=== PATIENT | female | born 1970 ===

== ENCOUNTER 2018-04-04 07:20 | Outpatient (CLI) | payer OTHER ==
[~2018-04-04 07:20] MED LIST: DERMOTIC20 ML OTIC; DIOVAN HCT 80/11 TA1 PO; FLONASE16 GM NS; NEURONTIN300 MG PO; TENCON TABLET1 TAB PO
== END 2018-04-04 08:19 | disposition home or self-care (01) ==
LOC: LAB 07:20
DX: I11.9 Hypertensive heart disease without heart failure (principal); E78.2 Mixed hyperlipidemia; E11.9 Type 2 diabetes mellitus without complications

== ENCOUNTER 2018-06-19 06:51 | Outpatient (CLI) | payer OTHER | END 2018-06-19 07:00 | disposition home or self-care (01) | LOC: LAB 06:51 | DX: I11.9 Hypertensive heart disease without heart failure (principal); E78.2 Mixed hyperlipidemia; D56.1 Beta thalassemia ==

== ENCOUNTER → 2018-10-17 | Outpatient (CLI) | payer OTHER | END | disposition home or self-care (01) | LOC: MAMO-SONO 07:05 | DX: N63.10 Unspecified lump in the right breast, unspecified quadrant (principal); N63.20 Unspecified lump in the left breast, unspecified quadrant; D57.3 Sickle-cell trait; I10 Essential (primary) hypertension; E78.2 Mixed hyperlipidemia; Z12.31 Encounter for screening mammogram for malignant neoplasm of breast; E06.3 Autoimmune thyroiditis; E03.8 Other specified hypothyroidism ==

== ENCOUNTER → 2018-12-18 | Outpatient (CLI) | payer OTHER | END | disposition home or self-care (01) | LOC: LAB 09:43 | DX: J11.1 Influenza due to unidentified influenza virus with other respiratory manifestations (principal); J11.81 Influenza due to unidentified influenza virus with encephalopathy ==

== ENCOUNTER → 2019-02-02 | Outpatient (CLI) | payer OTHER | END | disposition home or self-care (01) | LOC: LAB 12-19 09:27 → RAD 15:31 | DX: M54.2 Cervicalgia (principal); M54.5 Low back pain; M25.512 Pain in left shoulder; M25.551 Pain in right hip ==

== ENCOUNTER 2019-12-07 12:10 | Outpatient (CLI) | payer OTHER | END 2019-12-07 15:00 | disposition home or self-care (01) | LOC: LAB 12:10 | DX: Z03.818 Encounter for observation for suspected exposure to other biological agents ruled out (principal) ==

== ENCOUNTER 2020-04-22 09:00 | Outpatient (CLI) | payer OTHER | END 2020-04-22 15:49 | disposition home or self-care (01) | LOC: PPH VACUNA 09:00 | DX: Z23 Encounter for immunization (principal) ==

== ENCOUNTER 2020-06-27 14:41 | Outpatient (CLI) | payer OTHER | END 2020-06-27 15:00 | disposition home or self-care (01) | LOC: LAB 14:41 | PROVIDERS: ATTEND Radiology Diagnostic Radiology | DX: Z20.828 Contact with and (suspected) exposure to other viral communicable diseases (principal) ==

== ENCOUNTER 2020-07-21 08:47 | Outpatient (CLI) | payer OTHER | END 2020-07-21 15:00 | disposition home or self-care (01) | LOC: PPH VACUNA 08:47 | DX: Z23 Encounter for immunization (principal) ==

== ENCOUNTER → 2020-10-07 | Outpatient (CLI) | payer OTHER | END | disposition home or self-care (01) | LOC: MAMO-SONO 06:53 | PROVIDERS: ATTEND Radiology Diagnostic Radiology | DX: Z12.31 Encounter for screening mammogram for malignant neoplasm of breast (principal); E04.1 Nontoxic single thyroid nodule; R10.2 Pelvic and perineal pain ==

== ENCOUNTER → 2021-01-05 | Outpatient (CLI) | payer OTHER | END | disposition home or self-care (01) | LOC: SONOGRAMA 11:48 | PROVIDERS: ATTEND Radiology Diagnostic Radiology | DX: M79.641 Pain in right hand (principal); M25.531 Pain in right wrist ==

== ENCOUNTER 2021-02-15 06:59 | Outpatient (CLI) | payer OTHER | END 2021-02-15 07:01 | disposition home or self-care (01) | LOC: LAB 06:59 | PROVIDERS: ATTEND Internal Medicine Cardiovascular Disease | DX: N91.1 Secondary amenorrhea (principal); E78.2 Mixed hyperlipidemia; I11.9 Hypertensive heart disease without heart failure ==

== ENCOUNTER → 2021-02-17 07:02 | Outpatient (CLI) | payer OTHER | END | disposition home or self-care (01) | LOC: LAB 07:02 | DX: R19.5 Other fecal abnormalities (principal) ==

== ENCOUNTER 2021-05-02 08:00 | Outpatient (CLI) | payer OTHER | END 2021-05-02 11:09 | disposition home or self-care (01) | LOC: PPH VACUNA 08:00 | PROVIDERS: ATTEND Emergency Medicine Pediatric Emergency Medicine | DX: Z23 Encounter for immunization (principal) ==

== ENCOUNTER 2021-05-09 08:00 | Outpatient (CLI) | payer OTHER | END 2021-05-09 08:30 | disposition home or self-care (01) | LOC: PPH VACUNA 08:00 | PROVIDERS: ATTEND Emergency Medicine Pediatric Emergency Medicine | DX: Z23 Encounter for immunization (principal) ==

== ENCOUNTER 2021-12-19 06:40 | Outpatient (CLI) | payer OTHER | END 2021-12-19 06:52 | disposition home or self-care (01) | LOC: LAB 06:40 | PROVIDERS: ATTEND Internal Medicine Cardiovascular Disease | DX: E11.9 Type 2 diabetes mellitus without complications (principal); E78.00 Pure hypercholesterolemia, unspecified ==

== ENCOUNTER 2022-02-12 09:27 | Outpatient (CLI) | payer OTHER | END 2022-02-12 10:06 | disposition home or self-care (01) | LOC: NUCLEAR 09:27 | PROVIDERS: ATTEND Internal Medicine Cardiovascular Disease | DX: I49.3 Ventricular premature depolarization (principal) ==

== ENCOUNTER 2022-04-26 09:26 | Outpatient (CLI) | payer OTHER | END 2022-04-26 09:31 | disposition home or self-care (01) | LOC: PPH VACUNA 09:26 | PROVIDERS: ATTEND Emergency Medicine Pediatric Emergency Medicine | DX: Z23 Encounter for immunization (principal) ==

== ENCOUNTER 2022-05-11 08:00 | Outpatient (CLI) | payer OTHER | END 2022-05-11 08:05 | disposition home or self-care (01) | LOC: PPH VACUNA 08:00 | PROVIDERS: ATTEND Emergency Medicine Pediatric Emergency Medicine | DX: Z23 Encounter for immunization (principal) ==

== ENCOUNTER 2022-07-19 06:37 | Outpatient (CLI) | payer OTHER | END 2022-07-19 07:34 | disposition home or self-care (01) | LOC: LAB 06:37 | PROVIDERS: ATTEND Radiology Diagnostic Radiology | DX: I11.9 Hypertensive heart disease without heart failure (principal); E78.2 Mixed hyperlipidemia ==

== ENCOUNTER 2023-05-10 10:30 | Outpatient (CLI) | payer OTHER | END 2023-05-10 10:40 | disposition home or self-care (01) | LOC: PPH VACUNA 10:30 | PROVIDERS: ATTEND Emergency Medicine Pediatric Emergency Medicine | DX: Z23 Encounter for immunization (principal) ==

== ENCOUNTER 2023-05-23 07:04 | Outpatient (CLI) | payer OTHER | END 2023-05-23 07:20 | disposition home or self-care (01) | LOC: MAMO-SONO 07:04 | PROVIDERS: ATTEND Surgery | DX: N60.11 Diffuse cystic mastopathy of right breast (principal); N60.12 Diffuse cystic mastopathy of left breast; R10.84 Generalized abdominal pain; R10.2 Pelvic and perineal pain; Z12.31 Encounter for screening mammogram for malignant neoplasm of breast ==

== ENCOUNTER → 2024-05-27 | Outpatient (CLI) | payer OTHER | END | disposition home or self-care (01) | LOC: MAMO-SONO 07:13 | PROVIDERS: ATTEND Surgery | DX: N60.11 Diffuse cystic mastopathy of right breast (principal); N60.12 Diffuse cystic mastopathy of left breast ==

== ENCOUNTER 2024-06-05 03:30 | Outpatient (CLI) | payer OTHER | END 2024-06-05 04:00 | disposition home or self-care (01) | LOC: PPH VACUNA 03:30 | PROVIDERS: ATTEND Emergency Medicine Pediatric Emergency Medicine | DX: Z23 Encounter for immunization (principal) ==

== ENCOUNTER 2024-07-14 06:34 | Outpatient (CLI) | payer OTHER ==
[2024-07-14 07:10] LABS: HEMATOCRIT 42.2 % (36.0-45.00); MEAN CORPUSCULAR HEMOGLOBIN 22.3 pg (27.00-32.0); MEAN CORPUSCULAR HGB CONC 33.1 g/dl (32.0-36.0); PLATELET COUNT 238 K/uL (150-450); RED BLOOD COUNT 6.27 M/uL (4.00-6.00); RED CELL DISTRIBUTION WIDTH 16.4 % (11.5-14.5)
[2024-07-14 07:11] LABS: MEAN CELL VOLUME 67.3 fL (80.00-100.00)
[2024-07-14 07:30] LABS: URINE APPEARANCE Clear; URINE BILIRRUBIN Negative (NEGATIVE); URINE BLOOD Negative; URINE COLOR Yellow; URINE GLUCOSE Negative (NEGATIVE); URINE KETONE 15 (NEGATIVE); URINE LEUKOCYTE Negative; URINE NITRATE Negative; URINE PROTEIN Negative (NEGATIVE); URINE UROBILINOGEN 0.2 E.U./dl
[2024-07-14 07:34] LABS: URINE BACTERIA 4498.9 uL (0.0-1933); URINE CAST 4.12 uL (0.0-1.40); URINE RBC 20.7 uL (0.0-20.8); URINE WBC 31.3 uL (0.0-23.2)
[2024-07-14 08:04] LABS: BILIRUBIN TOTAL 0.56 mg/dL (0.3-1.2); CALCIUM 9.2 mg/dL (8.5-10.1); CHOL HDL RATIO 3.7 (0-5.0); CREATININE SERUM 0.88 mg/dL (0.55-1.02); GFR 67.22; GLOBULINA 3.9 G/DL (2.4-3.5); POTASSIUM 4.3 mEq/L (3.5-5.1); TOTAL PROTEIN 7.9 gm/dL (6.4-8.2); TSH 2.1 uIU/mL (0.358-3.74)
== END 2024-07-14 06:44 | disposition home or self-care (01) ==
LOC: LAB 06:34
DX: E11.9 Type 2 diabetes mellitus without complications (principal); E03.9 Hypothyroidism, unspecified; E78.9 Disorder of lipoprotein metabolism, unspecified; E55.9 Vitamin D deficiency, unspecified; D64.9 Anemia, unspecified

== ENCOUNTER 2025-06-03 08:25 | Outpatient (CLI) | payer OTHER | END 2025-06-03 08:28 | disposition home or self-care (01) | LOC: MAMO-SONO 08:25 | PROVIDERS: ATTEND Surgery | DX: N60.11 Diffuse cystic mastopathy of right breast (principal); N60.12 Diffuse cystic mastopathy of left breast ==

== ENCOUNTER 2025-07-16 07:28 | Outpatient (CLI) | payer OTHER ==
[2025-07-16 08:53] LABS: URINE APPEARANCE Clear; URINE BILIRRUBIN Negative (NEGATIVE); URINE BLOOD Negative; URINE COLOR Yellow; URINE GLUCOSE Negative (NEGATIVE); URINE KETONE Negative (NEGATIVE); URINE LEUKOCYTE Negative; URINE NITRATE Negative; URINE PROTEIN Negative (NEGATIVE); URINE UROBILINOGEN 0.2 E.U./dl
[2025-07-16 08:56] LABS: BASO % 0.5 % (0.1-1.2); EOS # 0.06 (0.04-0.54); EOS % 1.0 % (0.7-7.0); LYMPH # 1.51 (1.18-3.74); LYMPH % 23.9 % (19.3-53.1); MEAN PLATELET VOLUME 11.60 fl (9.4-12.4); MONO # 0.64 (0.24-0.82); MONO % 10.1 % (4.7-12.5); NEUT # 4.06 (1.56-6.13); NEUT % 64.3 % (34.0-71.1); RED CELL DISTRIBUTION WIDTH 16.9 % (11.6-14.4)
[2025-07-16 08:58] LABS: URINE BACTERIA 1199.8 uL (0.0-1933); URINE EPITHELIAL CELLS 8.8 uL (0.0-38.8); URINE RBC 4.9 uL (0.0-20.8); URINE WBC 1.9 uL (0.0-23.2)
[2025-07-16 09:00] LABS: URINE CAST 0.00 uL (0.0-1.40)
[2025-07-16 10:14] LABS: T3 TOTAL 1.14 ng/ml (0.846-2.02); VITAMIN D3 25 HYDROXY 51.71 ng/ml (30-120)
[2025-07-16 10:34] LABS: ALT/SGPT 29.0 U/L (12-78); AST/SGOT 20.0 U/L (15-37); BILIRUBIN TOTAL 0.93 mg/dL (0.3-1.2); BUN CREA RATIO 23.0 (7.0-25.0); CREATININE SERUM 0.88 mg/dL (0.55-1.02); GFR 66.96; GLOBULINA 4.3 G/DL (2.4-3.5); GLUCOSE FASTING 80.0 mg/dL (65-100); OSMOLALITY SERUM 283.0 MOSM/KG (275-295); T4 TOTAL 6.88 UG/DL (4.8-13.9); TSH 1.32 uIU/mL (0.358-3.74)
[2025-07-17 10:07] LABS: INSULIN LEVELS 11.1 uIU/mL (2.6-24.9)
[2025-07-18 16:06] LABS: CALCITONIN < 2.0 pg/mL (0.0-5.0)
== END 2025-07-16 07:47 | disposition home or self-care (01) ==
LOC: LAB 07:28
PROVIDERS: ATTEND Internal Medicine
DX: E11.9 Type 2 diabetes mellitus without complications (principal); E34.9 Endocrine disorder, unspecified; E07.9 Disorder of thyroid, unspecified; E55.9 Vitamin D deficiency, unspecified; E53.9 Vitamin B deficiency, unspecified; E78.5 Hyperlipidemia, unspecified; N30.00 Acute cystitis without hematuria; I10 Essential (primary) hypertension; D64.9 Anemia, unspecified; E06.9 Thyroiditis, unspecified